=== PATIENT | female | born 1945 | race Caucasian/White ===

== ENCOUNTER 2016-07-20 10:48 | Inpatient (IN) | payer MEDICARE, OTHER ==
[2016-07-20 11:47] LABS: BASOPHIL 2.2 % (0-2); EOSINOPHIL 0.1 % (0-7); HCT 49.2 % (37.0-47.0); HGB 15.7 g/dl (12.5-16.0); LYMPHOCYTE 20.8 % (15-48); MCH 31.4 pg (25.0-31.0); MCHC 31.9 g/dL (32.0-36.0); MCV 98.4 fL (78.0-100.0); MONOCYTE 9.9 % (0-12); MPV 10.8 fL (6.0-9.5); PLT 161 K/uL (150-400); RDW 13.4 % (11.5-14.0); WBC 6.8 K/uL (4.0-10.5)
[2016-07-20 12:04] LABS: ALBUMIN 4.4 g/dL (3.4-4.8); BILIRUBIN - TOTAL 0.9 mg/dL (0.1-1.0); CREATININE 0.6 mg/dL (0.5-1.0); GLOBULIN (CALCULATION) 2.2 g/dL (2.2-4.2); POTASSIUM 4.7 mmol/L (3.5-5.1); TOTAL PROTEIN 6.6 g/dL (6.4-8.3)
[2016-07-20 12:55] LABS: LACTIC ACID 2.9 mmol/L (0.5-2.2)
[2016-07-22 04:58] LABS: HCT 47.2 % (37.0-47.0); HGB 14.6 g/dl (12.5-16.0); MCH 30.5 pg (25.0-31.0); MCHC 30.9 g/dL (32.0-36.0); MCV 98.5 fL (78.0-100.0); MPV 10.7 fL (6.0-9.5); RBC 4.79 M/uL (4.20-5.40); RDW 13.4 % (11.5-14.0); WBC 6.7 K/uL (4.0-10.5)
[2016-07-22 05:35] LABS: CREATININE 0.7 mg/dL (0.5-1.0); POTASSIUM 4.4 mmol/L (3.5-5.1)
--- NOTE | 2016-07-23 00:57 | NUR ---
REPORT TO YUDI
[2016-07-24 03:41] LABS: HCT 45.7 % (37.0-47.0); HGB 14.5 g/dl (12.5-16.0); MCH 30.9 pg (25.0-31.0); MCHC 31.7 g/dL (32.0-36.0); MCV 97.4 fL (78.0-100.0); MPV 9.8 fL (6.0-9.5); RBC 4.69 M/uL (4.20-5.40); RDW 13.6 % (11.5-14.0); WBC 5.4 K/uL (4.0-10.5)
[2016-07-24 04:04] LABS: CREATININE 0.6 mg/dL (0.5-1.0); POTASSIUM 4.1 mmol/L (3.5-5.1)
[2016-07-25] MEDS ORDERED: LIPITOR20 MG PO (15:18)
[2016-07-25] MEDS ORDERED: PRINIVIL20 MG PO (15:18)
[2016-07-25] MEDS ORDERED: NORVASC 10MG TA10 MG PO (15:18)
[2016-07-25] MEDS ORDERED: NEURONTIN100 MG PO (15:19)
[2016-07-25] MEDS ORDERED: GLUCOTROL10 MG PO (15:19)
[2016-07-25] MEDS ORDERED: GLUCOPHAGE XR500 MG PO (15:19)
[2016-07-25] MEDS ORDERED: JANUVIA100 MG PO (15:19)
[2016-07-25] MEDS ORDERED: ACTOS15 MG PO (15:19)
[2016-07-25] MEDS ORDERED: LEVAQUIN750 MG PO (15:20)
[2016-07-25] MEDS ORDERED: VITAMIN D50000 UNIT PO (15:20)
[2016-07-25] MEDS ORDERED: COMBIVENT RESPIM4 GM INH (15:21)
== END 2016-07-25 16:49 | disposition home or self-care (01) | DRG 189 ==
LOC: FER 10:48 → FTCU 13:30 → FMS 07-24 11:00
PROVIDERS: Emergency Medicine; Internal Medicine; ADMIT Internal Medicine
PROC: 5A09457 Assistance with Respiratory Ventilation, 24-96 Consecutive Hours, Continuous Positive Airway Pressure (ICD-10-PCS; principal; 2016-07-20)
DX: J96.01 Acute respiratory failure with hypoxia (principal); J18.9 Pneumonia, unspecified organism; E87.2 Acidosis; J44.0 Chronic obstructive pulmonary disease with (acute) lower respiratory infection; J44.9 Chronic obstructive pulmonary disease, unspecified; J44.1 Chronic obstructive pulmonary disease with (acute) exacerbation; Z68.42 Body mass index [BMI] 45.0-49.9, adult; E11.65 Type 2 diabetes mellitus with hyperglycemia; I10 Essential (primary) hypertension; E78.5 Hyperlipidemia, unspecified; Z86.73 Personal history of transient ischemic attack (TIA), and cerebral infarction without residual deficits; Z87.891 Personal history of nicotine dependence; E66.9 Obesity, unspecified
CPT/HCPCS: 36415; 36600; 71020; 71250; 80048; 80053; 82803; 82962; 83605; 85025; 87040; 87804; 87899; 93005; 94010; 94640; 94660; 97110; 97116; 97161; 97166; 97530; 97530-GP; 97535; C9113; J0456; J1644; J2930